=== PATIENT | female | born 1955 | race Caucasian/White ===

== ENCOUNTER 2022-04-14 14:41 | Inpatient (IN) ==
[2022-04-14] MEDS ORDERED: Zosyn per Pharmacy NOTE FOLLOW UP SCH (20:00)
[2022-04-14] MEDS: Midazolam 50 MG VIAL IV DRIP 50 ML IV SCH (20:03)
[2022-04-14 20:21] LABS: PCO2 Arterial 52 mmHg (35-45); PO2 Arterial 109 mmHg (80-100)
[2022-04-14] MEDS ORDERED: Piperacillin/Tazobac ADVAN 3.375 GM in NS 0.9% 100 ml BAG 100 ML IV ONE (20:30)
[2022-04-14] MEDS ORDERED: Norepinephrine 16MCG/ML BAGD5W 4,000 MCG/250 ML BAG IV ONE (21:49)
[2022-04-14] MEDS ORDERED: Vancomycin 1,000 MG in NS 0.9% 250 ml 250 ML IVPB ONE (22:01)
[2022-04-14 22:13] LABS: Activated Partial Thrombo Time 24.8 seconds (26.0-38.0); INR 1.05 (0.86-1.15)
[2022-04-14] MEDS: Pantoprazole VIAL 40 MG VIAL IV SCH (22:27)
[2022-04-14 22:28] LABS: Hematocrit 28 % (35-47); Hemoglobin 8.4 g/dL (12.0-16.0); Mean Corpuscular HGB Conc 30 g/dL (31-36); Mean Corpuscular Hemoglobin 25 pg (27-31); Mean Corpuscular Volume 82 fL (80-97); Mean Platelet Volume 8.3 fL (7.4-10.4); Platelet Count 422 10^3/uL (150-450); Red Blood Count 3.41 10^6 /uL (3.70-4.87); Red Cell Distribution Width 17 % (10-15); White Blood Count 14.8 10^3/uL (3.5-10.8)
[2022-04-14] MEDS: Heparin 5000 UNITS/ML 1 mL VIAL SUBCUT SCH (22:29)
[2022-04-14 22:32] LABS: ABS Lymphocytes 0.8 10^3/ul (1.0-4.8); ABS Monocytes 0.2 10^3/ul (0-0.8); ABS Neutrophils 13.8 10^3/ul (1.5-7.7); Eosinophil % 0.1 %; Lymphocyte % 5.7 %; Nucleated Red Blood Cells % 0.1
[2022-04-14] MEDS ORDERED: Hydrocortisone INJ 100 MG/2ML 2 ML VIAL IV ONE (23:00)
[2022-04-14] MEDS ORDERED: Norepinephrine 16MCG/ML BAGD5W 4,000 MCG/250 ML BAG IV SCH ×2 (23:00)
[2022-04-14] MEDS ORDERED: Vancomycin per Pharmacy 1 EA NOTE FOLLOW UP SCH (23:00)
[2022-04-14] MEDS ORDERED: Vancomycin 2,000 MG in NS 0.9% 500 ml BAG 500 ML IVPB ONE (23:00)
[2022-04-14 23:03] LABS: Calcium 8.1 mg/dL (8.6-10.3); Magnesium 2.9 mg/dL (1.9-2.7); Total Bilirubin 0.2 mg/dL (0.2-1.0)
[2022-04-14 23:09] LABS: Albumin/Globulin Ratio 1.3 (1-3); Globulin 2.4 g/dL (2-4); Phosphorus 4.1 mg/dL (2.5-5.0); Total Protein 5.4 g/dL (6.4-8.9); eGFR CKD-EPI 27.9 (>60)
[2022-04-14] MEDS ORDERED: Dextrose 50% Syringe 50 ml 25 GM/50 ML SYRINGE IV PUSH PRN (23:11)
[2022-04-14 23:16] LABS: Potassium 6.6 mmol/L (3.5-5.0)
[2022-04-14] MEDS ORDERED: Dextrose 50% Syringe 50 ml 25 GM/50 ML SYRINGE IV PUSH ONE (23:16)
[2022-04-14] MEDS: Chlorhexidine MOUTHWASH 0.12% 15 ML UDC SWISH SPIT SCH (23:31)
[2022-04-14] MEDS ORDERED: Albuterol/Ipratropium NEB.SOL (2.5/0.5 MG) 3 ML NEB.SOLN INH PRN (23:56)
[2022-04-15 00:34] LABS: Glucose Confirmatory 442 mg/dL (70-100)
[2022-04-15] MEDS: Insulin GLARGINE 100 un/ml 10 ml VIAL SUBCUT SCH ×2 (00:58→23:13)
[2022-04-15 01:27] LABS: Urine Appearance Cloudy; Urine Bilirubin Negative (Negative); Urine Blood Negative (Negative); Urine Color Yellow; Urine Glucose 3+(>=500 mg/dL) (Negative); Urine Ketones Negative (Negative); Urine Nitrite Negative (Negative); Urine Protein 1+(30 mg/dL) (Negative); Urine Specific Gravity 1.011 (1.002-1.030); Urine Urobilinogen Negative (Negative)
[2022-04-15 01:29] LABS: Urine Bacteria 1+ (Absent); Urine Red Blood Cell Trace(0-2/hpf) (Absent); Urine Squamous Epithelial Cell Present (Absent); Urine White Blood Cell 2+(11-20/hpf) (Absent)
[2022-04-15] MEDS ORDERED: Nystatin SUSPENSION 100,000 UNITS/ML UDC PO ONE (01:37)
[2022-04-15] MEDS: fentaNYL 100 mcg/2 ml 50 MCG/ML VIAL IV SLOW PU PRN ×3 (01:54→21:34)
[2022-04-15] MEDS: SODIUM ZIRCONIUM CYCLOSILICATE 10 GM PACKET PO SCH ×3 (02:15→21:06)
[2022-04-15] MEDS: Midazolam 50 MG VIAL IV DRIP 50 ML IV SCH (02:17)
[2022-04-15] MEDS: ZOSYN 3.375 GM Q8H per EXTENDED INFUSION IV SCH ×3 (02:22→17:16)
[2022-04-15 02:30] LABS: Basophilic Stippling 2+; Polychromasia 1+
[2022-04-15 02:31] LABS: Anisocytosis 1+; RBC Morphology Normal (Normal)
[2022-04-15 03:42] LABS: Potassium 5.8 mmol/L (3.5-5.0)
[2022-04-15 05:39] LABS: Hematocrit 27 % (35-47); Hemoglobin 8.1 g/dL (12.0-16.0); Mean Corpuscular HGB Conc 31 g/dL (31-36); Mean Corpuscular Hemoglobin 25 pg (27-31); Mean Corpuscular Volume 81 fL (80-97); Mean Platelet Volume 8.3 fL (7.4-10.4); Platelet Count 315 10^3/uL (150-450); Red Blood Count 3.27 10^6 /uL (3.70-4.87); Red Cell Distribution Width 17 % (10-15); White Blood Count 16.3 10^3/uL (3.5-10.8)
[2022-04-15] MEDS: Chlorhexidine MOUTHWASH 0.12% 15 ML UDC SWISH SPIT SCH ×5 (05:41→23:13)
[2022-04-15] MEDS: Heparin 5000 UNITS/ML 1 mL VIAL SUBCUT SCH ×3 (05:41→23:13)
[2022-04-15 05:49] LABS: ABS Basophils 0.1 10^3/ul (0-0.2); ABS Lymphocytes 0.6 10^3/ul (1.0-4.8); ABS Monocytes 0.4 10^3/ul (0-0.8); ABS Neutrophils 15.2 10^3/ul (1.5-7.7); Lymphocyte % 3.8 %
[2022-04-15 06:31] LABS: Albumin 2.9 g/dL (3.2-5.2); Albumin/Globulin Ratio 1.2 (1-3); Globulin 2.4 g/dL (2-4); Total Bilirubin 0.2 mg/dL (0.2-1.0); Total Protein 5.3 g/dL (6.4-8.9); eGFR CKD-EPI 30.1 (>60)
[2022-04-15 06:34] LABS: Potassium 5.5 mmol/L (3.5-5.0)
[2022-04-15] MEDS: Zinc Oxide 16% PASTE (Butt Paste) 30 gm TUBE TOPICAL SCH ×2 (07:45→21:07)
[2022-04-15] MEDS: Multivitamins ADULT w/MIN LIQ 15 ML UDC PO SCH (07:45)
[2022-04-15] MEDS ORDERED: Perflutren Lipid Microsphere 3 ML VIAL ONE (07:49)
[2022-04-15] MEDS ORDERED: Insulin GLARGINE 100 un/ml 10 ml VIAL SUBCUT ONE (08:37)
[2022-04-15] MEDS ORDERED: Furosemide 40 mg/4 ml IV VIAL IV SLOW PU ONE (08:37)
[2022-04-15 08:52] LABS: PCO2 Arterial 42 mmHg (35-45); PO2 Arterial 71 mmHg (80-100)
[2022-04-15] MEDS ORDERED: Hydrocortisone INJ 100 MG/2ML 2 ML VIAL IV SCH (09:00)
[2022-04-15] MEDS ORDERED: Vancomycin Random Level NOTE FOLLOW UP ONE (10:00)
[2022-04-15] MEDS ORDERED: methylPREDNISolone SOD SUCC 125 mg 2 ML VIAL IV SCH (10:00)
[2022-04-15] MEDS ORDERED: Dexmedetomidine 200 mcg/2 ml 2 ml VIAL (200 mcg) ONE (11:05)
[2022-04-15] MEDS: Dexmedetomidine 1,000 MCG in NS 0.9% 250 ml 240 ML IV SCH ×2 (12:06→23:12)
[2022-04-15] MEDS: methylPREDNISolone SOD SUCC 40 mg/ml 1 ml VIAL IV SCH ×2 (13:49→23:13)
[2022-04-15] MEDS: Azithromycin 500 mg/250 ml NS 500 MG/250 ML BAG IVPB SCH (13:50)
[2022-04-15 13:53] LABS: PCO2 Arterial 44 mmHg (35-45); PO2 Arterial 88 mmHg (80-100)
[2022-04-15] MEDS: Pantoprazole VIAL 40 MG VIAL IV SCH (21:06)
[2022-04-15] MEDS ORDERED: LORazepam 2 mg VIAL 1 ml IV PUSH ONE (22:14)
[2022-04-15] MEDS ORDERED: Lorazepam PYXIS KEY PRN (22:14)
[2022-04-15] MEDS ORDERED: NS 0.9% 250 ml 250 ML ONE (22:41)
[2022-04-16] MEDS: ZOSYN 3.375 GM Q8H per EXTENDED INFUSION IV SCH ×2 (01:38→08:43)
[2022-04-16] MEDS: Chlorhexidine MOUTHWASH 0.12% 15 ML UDC SWISH SPIT SCH ×6 (01:39→21:54)
[2022-04-16] MEDS: fentaNYL 100 mcg/2 ml 50 MCG/ML VIAL IV SLOW PU PRN ×8 (01:50→23:16)
[2022-04-16 04:39] LABS: Hematocrit 28 % (35-47); Hemoglobin 8.3 g/dL (12.0-16.0); Mean Corpuscular HGB Conc 30 g/dL (31-36); Mean Corpuscular Hemoglobin 24 pg (27-31); Mean Corpuscular Volume 80 fL (80-97); Mean Platelet Volume 8.2 fL (7.4-10.4); Platelet Count 300 10^3/uL (150-450); Red Blood Count 3.49 10^6 /uL (3.70-4.87); Red Cell Distribution Width 17 % (10-15); White Blood Count 17.2 10^3/uL (3.5-10.8)
[2022-04-16 05:17] LABS: Albumin/Globulin Ratio 1.2 (1-3); Globulin 2.6 g/dL (2-4); Magnesium 2.9 mg/dL (1.9-2.7); Potassium 5.9 mmol/L (3.5-5.0); Total Bilirubin 0.2 mg/dL (0.2-1.0); Total Protein 5.6 g/dL (6.4-8.9); eGFR CKD-EPI 26.2 (>60)
[2022-04-16] MEDS: methylPREDNISolone SOD SUCC 40 mg/ml 1 ml VIAL IV SCH ×2 (05:35→19:57)
[2022-04-16] MEDS: Heparin 5000 UNITS/ML 1 mL VIAL SUBCUT SCH ×3 (05:35→21:54)
[2022-04-16] MEDS: Dexmedetomidine 1,000 MCG in NS 0.9% 250 ml 240 ML IV SCH ×4 (05:47→21:07)
[2022-04-16] MEDS: SODIUM ZIRCONIUM CYCLOSILICATE 10 GM PACKET PO SCH (08:40)
[2022-04-16] MEDS: Multivitamins ADULT w/MIN LIQ 15 ML UDC PO SCH (08:41)
[2022-04-16] MEDS ORDERED: methylPREDNISolone SOD SUCC 40 mg/ml 1 ml VIAL IV SCH (10:00)
[2022-04-16] MEDS ORDERED: Propofol 10 mg/ml 100 ML BTL 0 ML ONE (10:33)
[2022-04-16] MEDS: cefTRIAXone 1 gm/50 mL D5W 1 GM/50 ML BAG IV SCH (10:41)
[2022-04-16 11:21] LABS: PCO2 Arterial 40 mmHg (35-45); PO2 Arterial 80 mmHg (80-100)
[2022-04-16] MEDS: Azithromycin 500 mg/250 ml NS 500 MG/250 ML BAG IVPB SCH (12:45)
[2022-04-16] MEDS: Zinc Oxide 16% PASTE (Butt Paste) 30 gm TUBE TOPICAL SCH ×2 (12:46→21:54)
[2022-04-16] MEDS: Dakins Solution 0.125% (1/4 STRENGTH) 473 ML BTL TOPICAL PRN (13:03)
[2022-04-16] MEDS: Pantoprazole VIAL 40 MG VIAL IV SCH (19:57)
[2022-04-16] MEDS: Insulin GLARGINE 100 un/ml 10 ml VIAL SUBCUT SCH (21:54)
[2022-04-17] MEDS: methylPREDNISolone SOD SUCC 40 mg/ml 1 ml VIAL IV SCH ×4 (01:11→21:45)
[2022-04-17] MEDS: Chlorhexidine MOUTHWASH 0.12% 15 ML UDC SWISH SPIT SCH ×6 (01:12→20:20)
[2022-04-17] MEDS ORDERED: fentaNYL 100 mcg/2 ml 50 MCG/ML VIAL IV SLOW PU ONE (02:10)
[2022-04-17] MEDS ORDERED: fentaNYL 100 mcg/2 ml 50 MCG/ML VIAL IV SLOW PU PRN (02:10)
[2022-04-17] MEDS: Dexmedetomidine 1,000 MCG in NS 0.9% 250 ml 240 ML IV SCH ×2 (02:22→08:48)
[2022-04-17] MEDS ORDERED: Propofol 10 mg/ml 100 ML BTL 100 ML ONE (03:01)
[2022-04-17 05:57] LABS: Hematocrit 28 % (35-47); Hemoglobin 8.6 g/dL (12.0-16.0); Mean Corpuscular HGB Conc 31 g/dL (31-36); Mean Corpuscular Hemoglobin 25 pg (27-31); Mean Corpuscular Volume 81 fL (80-97); Mean Platelet Volume 8.6 fL (7.4-10.4); Platelet Count 281 10^3/uL (150-450); Red Blood Count 3.48 10^6 /uL (3.70-4.87); Red Cell Distribution Width 17 % (10-15); White Blood Count 15.9 10^3/uL (3.5-10.8)
[2022-04-17] MEDS: Heparin 5000 UNITS/ML 1 mL VIAL SUBCUT SCH ×3 (06:17→20:21)
[2022-04-17 06:22] LABS: Anisocytosis 1+
[2022-04-17 06:23] LABS: ABS Basophils 0.1 10^3/ul (0-0.2); ABS Lymphocytes 0.9 10^3/ul (1.0-4.8); ABS Monocytes 0.6 10^3/ul (0-0.8); ABS Neutrophils 14.3 10^3/ul (1.5-7.7); Lymphocyte % 5.4 %; Nucleated Red Blood Cells % 0.1
[2022-04-17 06:40] LABS: Albumin/Globulin Ratio 1.3 (1-3); Calcium 7.6 mg/dL (8.6-10.3); Globulin 2.4 g/dL (2-4); Phosphorus 3.8 mg/dL (2.5-5.0); Total Bilirubin 0.2 mg/dL (0.2-1.0); Total Protein 5.4 g/dL (6.4-8.9); eGFR CKD-EPI 22.5 (>60)
[2022-04-17 06:43] LABS: Potassium 5.5 mmol/L (3.5-5.0)
[2022-04-17 06:46] LABS: PCO2 Arterial 40 mmHg (35-45); PO2 Arterial 105 mmHg (80-100)
[2022-04-17] MEDS: Multivitamins ADULT w/MIN LIQ 15 ML UDC PO SCH (08:32)
[2022-04-17] MEDS: cefTRIAXone 1 gm/50 mL D5W 1 GM/50 ML BAG IV SCH (08:33)
[2022-04-17] MEDS ORDERED: Furosemide 20 mg/2 ml IV VIAL IV ONE (09:22)
[2022-04-17] MEDS ORDERED: fentaNYL 100 mcg/2 ml 50 MCG/ML VIAL ONE (12:30)
[2022-04-17] MEDS ORDERED: Acetaminophen IV 1 GM/100ML 100 ML IV ONE (12:31)
[2022-04-17] MEDS: fentaNYL 100 mcg/2 ml 50 MCG/ML VIAL IV SLOW PU PRN ×3 (12:43→20:20)
[2022-04-17] MEDS: Acetaminophen IV 1 GM/100ML 100 ML IV PRN ×2 (12:43→20:28)
[2022-04-17] MEDS: Zinc Oxide 16% PASTE (Butt Paste) 30 gm TUBE TOPICAL SCH ×2 (14:10→20:21)
[2022-04-17] MEDS: Dakins Solution 0.125% (1/4 STRENGTH) 473 ML BTL TOPICAL PRN (14:10)
[2022-04-17] MEDS: Propofol 10 mg/ml 100 ML BTL 100 ML IV SCH ×3 (14:11→22:32)
[2022-04-17] MEDS: Azithromycin 500 mg/250 ml NS 500 MG/250 ML BAG IVPB SCH (14:15)
[2022-04-17] MEDS: Pantoprazole VIAL 40 MG VIAL IV SCH (20:20)
[2022-04-17] MEDS: Insulin GLARGINE 100 un/ml 10 ml VIAL SUBCUT SCH (20:20)
[2022-04-18] MEDS: Chlorhexidine MOUTHWASH 0.12% 15 ML UDC SWISH SPIT SCH ×6 (01:58→21:53)
[2022-04-18] MEDS: Propofol 10 mg/ml 100 ML BTL 100 ML IV SCH ×8 (01:58→23:33)
[2022-04-18] MEDS: methylPREDNISolone SOD SUCC 40 mg/ml 1 ml VIAL IV SCH ×2 (01:58→09:13)
[2022-04-18 04:39] LABS: Hematocrit 27 % (35-47); Hemoglobin 8.1 g/dL (12.0-16.0); Mean Corpuscular HGB Conc 30 g/dL (31-36); Mean Corpuscular Hemoglobin 25 pg (27-31); Mean Corpuscular Volume 82 fL (80-97); Mean Platelet Volume 8.6 fL (7.4-10.4); Platelet Count 307 10^3/uL (150-450); Red Blood Count 3.33 10^6 /uL (3.70-4.87); Red Cell Distribution Width 17 % (10-15); White Blood Count 25.9 10^3/uL (3.5-10.8)
[2022-04-18 05:06] LABS: Calcium 7.2 mg/dL (8.6-10.3); Magnesium 2.9 mg/dL (1.9-2.7); Potassium 4.5 mmol/L (3.5-5.0); eGFR CKD-EPI 23.3 (>60)
[2022-04-18] MEDS: Heparin 5000 UNITS/ML 1 mL VIAL SUBCUT SCH ×3 (05:27→21:53)
[2022-04-18] MEDS: fentaNYL 100 mcg/2 ml 50 MCG/ML VIAL IV SLOW PU PRN ×4 (05:27→17:45)
[2022-04-18] MEDS: Acetaminophen IV 1 GM/100ML 100 ML IV PRN (05:57)
[2022-04-18] MEDS ORDERED: Insulin GLARGINE 100 un/ml 10 ml VIAL SUBCUT ONE (06:24)
[2022-04-18 07:13] LABS: Glucose Confirmatory 433 mg/dL (70-100)
[2022-04-18] MEDS: Furosemide 40 mg/4 ml IV VIAL IV SCH ×2 (09:13→16:47)
[2022-04-18] MEDS: cefTRIAXone 1 gm/50 mL D5W 1 GM/50 ML BAG IV SCH (09:14)
[2022-04-18] MEDS: Multivitamins ADULT w/MIN LIQ 15 ML UDC PO SCH (09:14)
[2022-04-18] MEDS: Zinc Oxide 16% PASTE (Butt Paste) 30 gm TUBE TOPICAL SCH ×2 (09:14→20:19)
[2022-04-18] MEDS ORDERED: methylPREDNISolone SOD SUCC 40 mg/ml 1 ml VIAL IV ONE (12:22)
[2022-04-18 12:43] LABS: Glucose Confirmatory 447 mg/dL (70-100)
[2022-04-18] MEDS ORDERED: Dextrose 50% Syringe 50 ml 25 GM/50 ML SYRINGE IV PUSH PRN (13:12)
[2022-04-18] MEDS: Azithromycin 500 mg/250 ml NS 500 MG/250 ML BAG IVPB SCH (14:06)
[2022-04-18] MEDS: Dakins Solution 0.125% (1/4 STRENGTH) 473 ML BTL TOPICAL PRN (15:30)
[2022-04-18] MEDS: Pantoprazole VIAL 40 MG VIAL IV SCH (20:19)
[2022-04-18] MEDS: Insulin GLARGINE 100 un/ml 10 ml VIAL SUBCUT SCH (20:55)
[2022-04-18] MEDS ORDERED: Insulin GLARGINE 100 un/ml 10 ml VIAL SUBCUT SCH ×2 (21:00)
[2022-04-18] MEDS: Saline FLUSH-CENTRAL 10 ML SYRINGE CENT\\PICC SCH (21:54)
[2022-04-19] MEDS: Chlorhexidine MOUTHWASH 0.12% 15 ML UDC SWISH SPIT SCH ×6 (02:16→21:47)
[2022-04-19] MEDS: Propofol 10 mg/ml 100 ML BTL 100 ML IV SCH ×7 (02:59→22:10)
[2022-04-19 04:47] LABS: Hematocrit 26 % (35-47); Hemoglobin 7.7 g/dL (12.0-16.0); Mean Corpuscular HGB Conc 30 g/dL (31-36); Mean Corpuscular Hemoglobin 25 pg (27-31); Mean Corpuscular Volume 82 fL (80-97); Mean Platelet Volume 8.8 fL (7.4-10.4); Platelet Count 296 10^3/uL (150-450); Red Blood Count 3.13 10^6 /uL (3.70-4.87); Red Cell Distribution Width 18 % (10-15); White Blood Count 22.6 10^3/uL (3.5-10.8)
[2022-04-19 05:21] LABS: Calcium 7.3 mg/dL (8.6-10.3); Magnesium 2.9 mg/dL (1.9-2.7); Potassium 4.4 mmol/L (3.5-5.0); eGFR CKD-EPI 24.1 (>60)
[2022-04-19] MEDS: Heparin 5000 UNITS/ML 1 mL VIAL SUBCUT SCH ×3 (06:03→21:47)
[2022-04-19] MEDS ORDERED: Insulin GLARGINE 100 un/ml 10 ml VIAL SUBCUT ONE ×2 (07:46→13:54)
[2022-04-19] MEDS: Multivitamins ADULT w/MIN LIQ 15 ML UDC PO SCH (08:42)
[2022-04-19] MEDS: Saline FLUSH-CENTRAL 10 ML SYRINGE CENT\\PICC SCH ×2 (08:42→21:48)
[2022-04-19] MEDS: Zinc Oxide 16% PASTE (Butt Paste) 30 gm TUBE TOPICAL SCH ×2 (08:42→20:12)
[2022-04-19] MEDS: Furosemide 40 mg/4 ml IV VIAL IV SCH ×2 (08:42→16:17)
[2022-04-19] MEDS: cefTRIAXone 1 gm/50 mL D5W 1 GM/50 ML BAG IV SCH (09:24)
[2022-04-19 13:48] LABS: Glucose Confirmatory 435 mg/dL (70-100)
[2022-04-19] MEDS: Azithromycin 500 mg/250 ml NS 500 MG/250 ML BAG IVPB SCH (14:21)
[2022-04-19 17:56] LABS: Glucose Confirmatory 424 mg/dL (70-100)
[2022-04-19] MEDS: Pantoprazole VIAL 40 MG VIAL IV SCH (20:12)
[2022-04-19] MEDS: Insulin GLARGINE 100 un/ml 10 ml VIAL SUBCUT SCH (20:12)
[2022-04-20] MEDS: Propofol 10 mg/ml 100 ML BTL 100 ML IV SCH ×3 (01:03→10:28)
[2022-04-20] MEDS: Chlorhexidine MOUTHWASH 0.12% 15 ML UDC SWISH SPIT SCH ×3 (02:24→09:50)
[2022-04-20 05:11] LABS: Hematocrit 25 % (35-47); Hemoglobin 7.7 g/dL (12.0-16.0); Mean Corpuscular HGB Conc 30 g/dL (31-36); Mean Corpuscular Hemoglobin 25 pg (27-31); Mean Corpuscular Volume 81 fL (80-97); Mean Platelet Volume 8.8 fL (7.4-10.4); Platelet Count 254 10^3/uL (150-450); Red Blood Count 3.13 10^6 /uL (3.70-4.87); Red Cell Distribution Width 17 % (10-15); White Blood Count 18.3 10^3/uL (3.5-10.8)
[2022-04-20 05:48] LABS: Calcium 7.7 mg/dL (8.6-10.3); Magnesium 2.7 mg/dL (1.9-2.7); eGFR CKD-EPI 29.9 (>60)
[2022-04-20] MEDS: Heparin 5000 UNITS/ML 1 mL VIAL SUBCUT SCH ×3 (06:13→21:58)
[2022-04-20] MEDS ORDERED: Insulin GLARGINE 100 un/ml 10 ml VIAL SUBCUT ONE (08:06)
[2022-04-20] MEDS: Furosemide 40 mg/4 ml IV VIAL IV SCH ×2 (08:44→16:10)
[2022-04-20] MEDS: Multivitamins ADULT w/MIN LIQ 15 ML UDC PO SCH (08:45)
[2022-04-20] MEDS: Zinc Oxide 16% PASTE (Butt Paste) 30 gm TUBE TOPICAL SCH ×2 (08:46→20:05)
[2022-04-20] MEDS: Dakins Solution 0.125% (1/4 STRENGTH) 473 ML BTL TOPICAL PRN (08:46)
[2022-04-20] MEDS: Saline FLUSH-CENTRAL 10 ML SYRINGE CENT\\PICC SCH ×2 (09:50→21:58)
[2022-04-20] MEDS: cefTRIAXone 1 gm/50 mL D5W 1 GM/50 ML BAG IV SCH (09:50)
[2022-04-20] MEDS: Azithromycin 500 mg/250 ml NS 500 MG/250 ML BAG IVPB SCH (14:49)
[2022-04-20] MEDS: Insulin GLARGINE 100 un/ml 10 ml VIAL SUBCUT SCH (20:05)
[2022-04-20] MEDS: Pantoprazole VIAL 40 MG VIAL IV SCH (20:05)
[2022-04-21 04:44] LABS: Hematocrit 27 % (35-47); Mean Corpuscular HGB Conc 30 g/dL (31-36); Mean Corpuscular Hemoglobin 24 pg (27-31); Mean Corpuscular Volume 80 fL (80-97); Mean Platelet Volume 8.8 fL (7.4-10.4); Platelet Count 239 10^3/uL (150-450); Red Blood Count 3.32 10^6 /uL (3.70-4.87); Red Cell Distribution Width 17 % (10-15); White Blood Count 19.6 10^3/uL (3.5-10.8)
[2022-04-21 05:15] LABS: Calcium 8.6 mg/dL (8.6-10.3); Magnesium 2.2 mg/dL (1.9-2.7); Potassium 3.8 mmol/L (3.5-5.0); eGFR CKD-EPI 39.3 (>60)
[2022-04-21] MEDS ORDERED: Potassium Chlor 20 meq TAB.ER PO ONE (05:54)
[2022-04-21] MEDS: Heparin 5000 UNITS/ML 1 mL VIAL SUBCUT SCH ×3 (06:06→20:20)
[2022-04-21] MEDS: Multivitamins ADULT w/MIN LIQ 15 ML UDC PO SCH (08:10)
[2022-04-21] MEDS: Furosemide 40 mg/4 ml IV VIAL IV SCH ×2 (08:10→17:13)
[2022-04-21] MEDS: Zinc Oxide 16% PASTE (Butt Paste) 30 gm TUBE TOPICAL SCH ×2 (08:11→20:56)
[2022-04-21] MEDS: Saline FLUSH-CENTRAL 10 ML SYRINGE CENT\\PICC SCH ×2 (09:53→20:57)
[2022-04-21] MEDS: cefTRIAXone 1 gm/50 mL D5W 1 GM/50 ML BAG IV SCH (09:53)
[2022-04-21] MEDS ORDERED: Morphine 2 MG/ML SYRINGE IV ONE ×2 (11:03→13:30)
[2022-04-21] MEDS ORDERED: Lorazepam PYXIS KEY PRN (14:08)
[2022-04-21] MEDS: LORazepam 2 mg VIAL 1 ml IV PUSH PRN ×2 (14:24→21:14)
[2022-04-21] MEDS: Pantoprazole VIAL 40 MG VIAL IV SCH (20:20)
[2022-04-21] MEDS: Insulin GLARGINE 100 un/ml 10 ml VIAL SUBCUT SCH (20:21)
[2022-04-21] MEDS: Acetaminophen IV 1 GM/100ML 100 ML IV PRN (21:14)
[2022-04-21] MEDS ORDERED: Metoprolol Tartrate 5 mg VIAL 5 ml VIAL (1 mg/ml) IV PRN (22:34)
[2022-04-21] MEDS: Metoprolol Tartrate 5 mg VIAL 5 ml VIAL (1 mg/ml) IV PRN ×2 (22:45→23:59)
[2022-04-22] MEDS ORDERED: Lactated Ringers 1000 ml BAG 500 ML IV ONE (02:00)
[2022-04-22] MEDS ORDERED: Diltiazem IV push/loading dose 5 MG/ML 5 ML vial (25 mg) IV SLOW PU ONE ×2 (02:58→04:03)
[2022-04-22] MEDS: Heparin 5000 UNITS/ML 1 mL VIAL SUBCUT SCH (04:55)
[2022-04-22] MEDS ORDERED: Diltiazem IV BAG D5W Premix 125 MG/125 ML BAG IV SCH (05:00)
[2022-04-22] MEDS ORDERED: Diltiazem (ADVAN VIAL) 100 MG/100 ML ADDV.BAG IV SCH (05:00)
[2022-04-22 05:35] LABS: Hematocrit 29 % (35-47); Hemoglobin 8.6 g/dL (12.0-16.0); Mean Corpuscular HGB Conc 30 g/dL (31-36); Mean Corpuscular Hemoglobin 24 pg (27-31); Mean Corpuscular Volume 80 fL (80-97); Mean Platelet Volume 9.3 fL (7.4-10.4); Platelet Count 281 10^3/uL (150-450); Red Blood Count 3.65 10^6 /uL (3.70-4.87); Red Cell Distribution Width 17 % (10-15); White Blood Count 25.3 10^3/uL (3.5-10.8)
[2022-04-22 05:59] LABS: Magnesium 1.8 mg/dL (1.9-2.7); Potassium 3.8 mmol/L (3.5-5.0); eGFR CKD-EPI 42.1 (>60)
[2022-04-22] MEDS: Furosemide 40 mg/4 ml IV VIAL IV SCH (07:52)
[2022-04-22] MEDS ORDERED: HYDROcodone/ACETAMIN 5/325 mg TAB PO PRN (08:57)
[2022-04-22] MEDS: Multivitamins ADULT w/MIN LIQ 15 ML UDC PO SCH (09:07)
[2022-04-22] MEDS: Zinc Oxide 16% PASTE (Butt Paste) 30 gm TUBE TOPICAL SCH (09:07)
[2022-04-22] MEDS ORDERED: Morphine 2 MG/ML SYRINGE IV PRN ×2 (10:05→10:18)
[2022-04-22] MEDS: cefTRIAXone 1 gm/50 mL D5W 1 GM/50 ML BAG IV SCH (10:06)
[2022-04-22] MEDS: Saline FLUSH-CENTRAL 10 ML SYRINGE CENT\\PICC SCH (10:07)
[2022-04-22] MEDS ORDERED: Morphine 2 MG/ML SYRINGE IV ONE (10:19)
[2022-04-22] MEDS ORDERED: Morphine PCA ADULT 5 MG/ML 30 ML PCA SCH (10:30)
[2022-04-22] MEDS ORDERED: Morphine 10 MG/ML VIAL (1 ml) ONE ×3 (10:56→11:05)
[2022-04-22] MEDS ORDERED: PHENobarbital IV 65 MG/ML 1 ml VIAL ONE (11:05)
[2022-04-22] MEDS ORDERED: PHENobarbital IV 65 MG/ML 1 ml VIAL IV ONE ×2 (11:21→11:22)
[2022-04-22 11:35] VITALS: BP 104/85
== END 2022-04-22 14:04 | disposition expired | DRG 870 ==
LOC: ICU 19:13
PROVIDERS: ADMIT Internal Medicine; ATTEND Internal Medicine